=== PATIENT | male | born 1940 | race Caucasian/White ===

== ENCOUNTER 2017-01-23 10:10 | Emergency (ER) | payer OTHER, MEDICARE ==
[2017-01-23] MEDS ORDERED: SODIUM CHLORIDE 500 ML IV STA (10:17)
[2017-01-23] MEDS ORDERED: morphine CARPU-JECT 4 MG/1 ML DISP.SYRIN IVPUSH PRN (10:17)
[2017-01-23] MEDS ORDERED: ONDANSETRON 4 MG/2 ML VIAL IVPB ONE (10:17)
--- NOTE | 2017-01-23 10:17 | PDOC ---
Attending Attestation - Resident Resident Name: Kenisha Stover - ED Attending Attestation I have performed the following: I have examined & evaluated the patient, The case was reviewed & discussed with the resident, I agree w/resident's findings & plan, Exceptions are as noted - HPI HPI: 01/23/17 11:09 The patient is a 76-year-old male with a significant past medical history of GERD, esophageal carcinoma (status post resection), hypertension, hyperlipidemia , who presents to the emergency department with abdominal pain that began acutely at 4 AM. It is been waxing and waning. It is currently severe. It is sharp and stabbing. It is associated with nausea, but no vomiting. Is associated with the desire to defecate, without bowel movement. His last normal bowel movement was 2 days ago. He has had flatus. He denies fever, chills, urinary symptoms. He denies previous similar episodes. - Physicial Exam PE: 01/23/17 11:12 Vitals noted He does have mild left upper, mid abdominal and lower abdominal tenderness on deep palpation There is no tenderness on superficial palpation - Medical Decision Making 01/23/17 10:33 Will obtain labs, urinalysis Will include lactic acid to rule out bowel ischemia 01/23/17 11:15 CBC noted Urinalysis noted with hematuria Ureterolithiasis is certainly high in the differential diagnosis EKG noted: Normal sinus rhythm at 66, normal axis, normal intervals, no acute ischemic changes Chest x-ray noted and discussed with radiology: No evidence of pneumoperitoneum I would favor CT without oral or IV contrast given our suspicion of ureterolithiasis Will await creatinine 01/23/17 11:38 Creatinine 1.[address] without oral or IV contrast to rule out ureterolithiasis 01/23/17 12:55 CT report noted, 2 mm stone either in the UVJ or in the bladder He is completely asymptomatic Will repeat lactic acid after hydration Given his bacteriuria and mild/moderate hydronephrosis, will administer single dose of ceftriaxone and discharged on Keflex, pending his repeat lactic acid 01/23/17 13:08 Case discussed with covering physician for PCP, who agrees with the plan of care and will ensure close follow-up 01/23/17 13:09 01/23/17 15:07 Repeat lactic acid noted: Laboratory Tests 01/23/17 13:31 Lactic Acid 1.5 He remains pain-free Clinical impression: Ureterolithiasis Asymptomatic bacteriuria He understands the extreme importance of returning if he develops recurrent symptoms I discussed the physical exam findings, ancillary test results and final diagnoses with the patient. I answered all of the patient's questions. The patient was satisfied with the care received and felt comfortable with the discharge plan and treatment plan. The patient will call their primary care physician within 24 hours to arrange follow-up and will return to the Emergency Department with any new, persistent or worsening symptoms. Discharge Disposition - Diagnosis Nephrolithiasis - Discharge Dispostion Disposition: HOME Condition at time of disposition: Stable - Prescriptions Prescriptions: Cephalexin Monohydrate [Keflex] 500 mg PO BID #10 capsule Naproxen [Naprosyn] 500 mg PO BID PRN #20 tablet PRN Reason: Pain Oxycodone HCl/Acetaminophen [Percocet 5-325 mg Tablet] 1 - 2 combo PO Q4H PRN # 20 tablet MDD 6 PRN Reason: Pain Ondansetron [Zofran *Odt*] 8 mg SL TID PRN #14 od.tablet PRN Reason: Nausea & Vomiting - Referrals - Patient Instructions Printed Discharge Instructions: DI for Kidney Stones Additional Instructions: Your pain was caused by the passing of a left kidney stone. According to the CT scan it was a small stone the already passed and is now in the bladder. It will pass futher without pain. Drink plenty of water. take Cephalexin antibiotic for 3 days twice a day. for severe pain take naproxen+percocet and for mild pain take naproxen. follow up with your primary and possibly a flatwork catcher to discuss how to avoid further stones. Return to ER if symptoms worsen. - Post Discharge Activity
--- NOTE | 2017-01-23 10:18 | PDOC ---
History of Present Illness - General Chief Complaint: Pain Stated Complaint: LEFT SIDE/FLANK PAIN Time Seen by Provider: 01/23/17 10:16 History Source: Patient Exam Limitations: No Limitations - History of Present Illness Initial Comments: 01/23/17 10:18 74 yo M with PMH of esophageal CA s/p resection 20 years ago, in remission, HLD , BPH, and GERD, who presents due to severe L sided abd pain that started suddenly at 4 am. He has never had pain like this before. It is waxing/waning, 10/10 at its most severe, associated with nausea, dry heaving, desire to defecate but inability to do so. We was able to have a very small hard BM with drops of dark read blood, which is not unusual for him as he has history of occasional constipation and hemorrhoids. His last normal bm was a few days ago. He denies f/c, loc, dizziness, chest pain, sob, cough, edema, flank pain, hematuria, dysuria, history of kidney stones. He has a midline incisional abd hernia that has not been bothering him. His last colonoscopy and endoscopy was 4 yrs ago ([facility]) and his last GI visit with lab work was 2 w ago. He denies sick contacts, new food, recent abx use. 01/23/17 11:45 01/23/17 11:50 01/23/17 13:17 Past History - Past Medical History Allergies/Adverse Reactions: Allergies Allergy/AdvReac Type Severity Reaction Status Date / Time No Known Allergies Allergy Verified 01/23/17 10:14 Home Medications: Ambulatory Orders Atorvastatin Ca [Lipitor] mg PO HS 01/23/17 Beclomethasone Dipropionate [Qvar] 8.7 gm IH ASDIR 01/23/17 Cephalexin Monohydrate [Keflex] 500 mg PO BID #10 capsule 01/23/17 Finasteride 5 mg PO DAILY 01/23/17 Fluticasone Prop 0.05% Nasal [Flonase -] 1 - 2 spray NS DAILY 01/23/17 Naproxen [Naprosyn] 500 mg PO BID PRN #20 tablet 01/23/17 Omeprazole mg PO DAILY 01/23/17 Ondansetron [Zofran *Odt*] 8 mg SL TID PRN #14 od.tablet 01/23/17 Oxycodone HCl/Acetaminophen [Percocet 5-325 mg Tablet] 1 - 2 combo PO Q4H PRN # 20 tablet MDD 6 01/23/17 Hypercholesterolemia: Yes - Psycho/Social/Smoking Cessation Hx Anxiety: No Suicidal Ideation: No Smoking History: Unknown if ever smoked Have you smoked in the past 12 months: No Hx Alcohol Use: No Drug/Substance Use Hx: No Substance Use Type: None Review of Systems - Review of Systems Able to Perform ROS?: Yes Is the patient limited [place] proficient: No Constitutional: No: Chills, Fever, Unexplained wgt Loss HEENTM: No: Nose Congestion, Throat Pain, Difficulty Swallowing Respiratory: No: Cough, Orthopnea, Shortness of Breath, Wheezing Cardiac (ROS): No: Chest Pain, Edema, Irregular Heart Rate, Lightheadedness, Palpitations, Syncope, Chest Tightness ABD/GI: Yes: Blood Streaked Bowels, Constipated, Nausea, Abdominal cramping. No : Abdominal Distended, Diarrhea, Difficulty Swallowing, Vomiting, Tarry Stools : No: Dysuria, Flank Pain, Incontinence, Testicular Mass, Testicular Swelling Musculoskeletal: No: Back Pain, Neck Pain Integumentary: No: Bruising, Pruritus, Rash Neurological: No: Headache, Numbness, Paresthesia Psychiatric: No: Anxiety Endocrine: No: Change in Weight Hematologic/Lymphatic: No: Anemia, Blood Clots, Easy Bleeding, Easy Bruising *Physical Exam - Physical Exam Comments: 01/23/17 11:52 General: AAO x3 mod distress HEENT: atraumatic, normocephalic, perrla, eomi, sclera anicteric, conjunctiva clear CV: RRR S1S2 Pulm: CTA b/l GI: soft, mildly distended, moderately tender LUQ to deep palpation, normoactive bowel sounds, no mass, no CVA tenderness Neuro: CN II-XII grossly intact Heart Score/ECG Review #1 General ECG Interpretation: Sinus Rhythm, Normal Rate, Normal Intervals, No acute ischemic changes ED Treatment Course - LABORATORY CBC & Chemistry Diagram: 01/23/17 10:45 01/23/17 10:45 Medical Decision Making - Medical Decision Making 01/23/17 10:51 01/23/17 11:54 Patient presents severe L sided waxing/waning abd pain of several hour duration r/o diverticulitis, ischemic or infectious colitis, nephrolithiasis cbc diff, cmp, lactic acid, crp, lipase, trop, ua, ekg, cxr patient given 500 cc NS IV, morphine and zofran -leukocytoisis 12.4 with left shift -UA 3+ hematuria -cmp unremarkable, crp. lipase wnl, lactate 2.3 Clinical picture most consistent with nephrolithiasis, will order ct abd/pelvis w/o contrast Patient given toradol IV, states he feels better. 01/23/17 11:56 01/23/17 11:57 01/23/17 13:13 CT shows 2 mm stone in bladder near orifice of L ureter, probably recently passed. Will discharge patient on a short course of keflex, as well as naproxen zofran and percocet 01/23/17 13:17 01/23/17 13:17 01/23/17 13:22 *DC/Admit/Observation/Transfer Diagnosis at time of Disposition: Calculus of kidney - Discharge Dispostion Disposition: HOME Condition at time of disposition: Stable Admit: No - Prescriptions Prescriptions: Cephalexin Monohydrate [Keflex] 500 mg PO BID #10 capsule Naproxen [Naprosyn] 500 mg PO BID PRN #20 tablet PRN Reason: Pain Oxycodone HCl/Acetaminophen [Percocet 5-325 mg Tablet] 1 - 2 combo PO Q4H PRN # 20 tablet MDD 6 PRN Reason: Pain Ondansetron [Zofran *Odt*] 8 mg SL TID PRN #14 od.tablet PRN Reason: Nausea & Vomiting - Patient Instructions Printed Discharge Instructions: DI for Kidney Stones Additional Instructions: Your pain was caused by the passing of a left kidney stone. According to the CT scan it was a small stone the already passed and is now in the bladder. It will pass futher without pain. Drink plenty of water. take Cephalexin antibiotic for 3 days twice a day. for severe pain take naproxen+percocet and for mild pain take naproxen. follow up with your primary and possibly a breaker layer to discuss how to avoid further stones. Return to ER if symptoms worsen.
[2017-01-23 10:21] VITALS: BP 168/50; PULSE 79; TEMP 97.6; BMI 23.6
[2017-01-23] MEDS ORDERED: ONDANSETRON 4 MG/2 ML VIAL ONE ×2 (10:21→11:33)
[2017-01-23 10:49] LABS: URINE BILIRUBIN Negative (NEGATIVE); URINE GLUCOSE (UA) Trace (NEGATIVE); URINE KETONE 1+ (NEGATIVE); URINE LEUK ESTERASE Negative (NEGATIVE); URINE NITRITE Negative (NEGATIVE); URINE UROBILINOGEN 0.2 E.U/dl (0.2-1.0)
[2017-01-23 10:55] LABS: URINE APPEARANCE CLOUDY; URINE BLOOD 3+ (NEGATIVE); URINE COLOR YELLOW; URINE PROTEIN 1+ (NEGATIVE)
[2017-01-23] MEDS ORDERED: morphine CARPU-JECT 4 MG/1 ML DISP.SYRIN IVPUSH ONE ×2 (10:56→11:02)
[2017-01-23 10:57] LABS: BASOPHIL 2.2 % (0-2.0); EOSINOPHIL 0.3 % (0-4.5); MCH 29.1 pg (25.7-33.7); MCHC 33.2 g/dl (32.0-35.9); MEAN CELL VOLUME 87.7 fl (80-96); MEAN PLT VOLUME 9.5 fl (7.5-11.1); NEUTROPHILS 85.4 % (42.8-82.8); PLATELET COUNT 156 K/MM3 (134-434); WHITE BLOOD COUNT 12.4 K/mm3 (4.0-10.8)
[2017-01-23] MEDS ORDERED: morphine CARPU-JECT 4 MG/1 ML DISP.SYRIN ONE (10:59)
[2017-01-23 11:10] LABS: CPK(DFH) 120 IU/L (38-174)
[2017-01-23 11:19] LABS: ALBUMIN 4.4 g/dl (3.5-5.0); ALK PHOS 76 U/L (32-92); ANION GAP 7 (8-16); BILIRUBIN,TOTAL 1.1 mg/dl (0.2-1.0); CALCIUM 9.3 mg/dl (8.4-10.2); CO2 25 mmol/L (22-28); CREATININE 1.2 mg/dl (0.6-1.3); GLUCOSE,RANDOM 168 mg/dl (74-106); SGOT/AST 22 U/L (10-42); SGPT/ALT 21 U/L (10-40); TOT PROT 7.2 g/dl (6.4-8.3)
[2017-01-23 11:32] LABS: TROPONIN I (DFP) < 0.03 ng/ml (0.03-0.50)
[2017-01-23] MEDS ORDERED: ONDANSETRON 4 MG/2 ML VIAL IVPUSH ONE (11:33)
[2017-01-23] MEDS ORDERED: KETOROLAC TROMETHAMINE 30 MG/1 ML VIAL IVPUSH ONE (11:43)
[2017-01-23] MEDS ORDERED: KETOROLAC TROMETHAMINE 30 MG/1 ML VIAL ONE (11:45)
[2017-01-23 12:03] LABS: URINE RBC 20-30 /hpf (0-3)
[2017-01-23 12:04] LABS: URINE BACTERIA FEW /hpf (NEGATIVE)
[2017-01-23] MEDS ORDERED: SODIUM CHLORIDE 1,000 ML IV STA (12:33)
[2017-01-23] MEDS ORDERED: CEFTRIAXONE 1 GM in DEXTROSE 5%-WATER - 50 ML IVPB ONE (12:33)
[2017-01-23] MEDS ORDERED: cefTRIAXone SODIUM 1 GM VIAL ONE (12:48)
--- NOTE | 2017-02-05 13:39 | EKG ---
Test Reason : Blood Pressure : / mmHG Vent. Rate : 065 BPM Atrial Rate : 065 BPM P-R Int : 138 ms QRS Dur : 102 ms QT Int : 438 ms P-R-T Axes : 051 061 029 degrees QTc Int : 455 ms NORMAL SINUS RHYTHM NORMAL ECG NO PREVIOUS ECGS AVAILABLE Confirmed by RUSS SAGASTUME MD ([id number] on 02/05/2017 1:39:28 PM Referred By: EDUARDO LOW Confirmed By:RUSS SAGASTUME MD
== END 2017-01-23 12:20 | disposition home or self-care (01) ==
LOC: FER 10:10
PROC: 3E03329 Introduction of Other Anti-infective into Peripheral Vein, Percutaneous Approach (ICD-10-PCS; principal; 2017-01-23)
PROC: 3E0333Z Introduction of Anti-inflammatory into Peripheral Vein, Percutaneous Approach (ICD-10-PCS; 2017-01-23)
PROC: 3E033NZ Introduction of Analgesics, Hypnotics, Sedatives into Peripheral Vein, Percutaneous Approach (ICD-10-PCS; 2017-01-23)
PROC: 3E033GC Introduction of Other Therapeutic Substance into Peripheral Vein, Percutaneous Approach (ICD-10-PCS; 2017-01-23)
PROC: 3E0337Z Introduction of Electrolytic and Water Balance Substance into Peripheral Vein, Percutaneous Approach (ICD-10-PCS; 2017-01-23)
DX: N20.0 Calculus of kidney (principal); K21.9 Gastro-esophageal reflux disease without esophagitis; Z85.01 Personal history of malignant neoplasm of esophagus; E78.5 Hyperlipidemia, unspecified; I10 Essential (primary) hypertension
CPT/HCPCS: 36415; 71010-TC; 74176-TC; 80053; 81003; 81015; 82550; 83605; 83690; 84484; 85025; 86140; 87040; 87086; 93005; 96361; 96365; 96375; 96376; 99285-25

== ENCOUNTER 2022-08-12 18:08 | Emergency (ER) | payer OTHER, MEDICARE ==
[2022-08-12] MEDS ORDERED: DIPHTH,PERTUSS(ACELL),TET 0.5 ML DISP.SYRIN IM ONE ×2 (18:27→19:16)
[2022-08-12] MEDS ORDERED: ACETAMINOPHEN 325 MG TABLET (FP) PO ONE (18:28)
[2022-08-12 18:37] VITALS: BP 183/98; PULSE 68; RESP 18; TEMP 97.8; BMI 23.8
[2022-08-12] MEDS ORDERED: ACETAMINOPHEN 325 MG TABLET (FP) ONE (19:16)
== END 2022-08-12 20:29 | disposition home or self-care (01) ==
LOC: FER 18:08
PROC: 0HQ1XZZ Repair Face Skin, External Approach (ICD-10-PCS; principal; 2022-08-12)
PROC: 3E0234Z Introduction of Serum, Toxoid and Vaccine into Muscle, Percutaneous Approach (ICD-10-PCS; 2022-08-12)
DX: S01.111A Laceration without foreign body of right eyelid and periocular area, initial encounter (principal); W22.8XXA Striking against or struck by other objects, initial encounter
CPT/HCPCS: 12011-25; 70450-TC; 72125-TC; 90471; 90715; 99284-25

== ENCOUNTER 2022-08-18 11:47 | Emergency (ER) | payer OTHER, MEDICARE ==
[2022-08-18 12:01] VITALS: BP 156/72; PULSE 81; RESP 16; TEMP 98.6; BMI 23.6
== END 2022-08-18 12:14 | disposition home or self-care (01) ==
LOC: FER 11:47
DX: S01.81XA Laceration without foreign body of other part of head, initial encounter (principal); W19.XXXA Unspecified fall, initial encounter; Z48.02 Encounter for removal of sutures
CPT/HCPCS: 99281-25